=== PATIENT | male | born 1985 | race Caucasian/White ===

== ENCOUNTER 2020-03-12 21:23 | Emergency (ER) | payer BC ==
--- NOTE | 2020-03-12 21:42 | ER Document Report ---
ED Medical Screen (RME) - General Chief Complaint: Probable Seizure Stated Complaint: POSSIBLE SEIZURE/POSSIBLE HEAD INJURY Time Seen by Provider: 03/12/20 21:38 Mode of Arrival: Wheelchair Information source: Patient, Relative Notes: HPI; 34-year-old male was brought to emergency room by his after having a seizure earlier this evening at home around 8:20 PM. Patient states he was sitt ing up in bed in the next thing he knew he woke up on the floor. States his child was on the bed with him and stated that "he was shaking all over and then fell off the bed". He denies any head trauma head injury. No incontinence. Was confused when he first woke up. Patient admits to biting his tongue but no other injuries. states he had a similar seizure last September they came to the emergency room but left prior to being fully evaluated. No recent head trauma or head injuries. No other history of seizures. PE: Alert and oriented x3. Lungs: Clear to auscultation without rales, rhonchi, wheezes. Heart: Regular rate rhythm without murmurs, rubs, gallops. I have greeted and performed a rapid initial assessment of this patient. A comprehensive ED assessment and evaluation of the patient, analysis of test results and completion of the medical decision making process will be conducted by additional ED providers. I have specifically instructed the patient or family members with the patient to immediately return to any nursing staff should anything change in the patient's condition or with their chief complaint. TRAVEL OUTSIDE OF THE [place] IN LAST 30 DAYS: No Physical Exam - Vital signs Vitals: Temp Pulse Resp BP Pulse Ox 98.3 F 86 17 113/74 95 03/12/20 21:29 03/12/20 21:29 03/12/20 21:29 03/12/20 21:29 03/12/20 21: Course - Vital Signs Vital signs: Temp Pulse Resp BP Pulse Ox 98.3 F 86 17 113/74 95 03/12/20 21:29 03/12/20 21:29 03/12/20 21:29 03/12/20 21:29 03/12/20 21:
[2020-03-12 22:54] LABS: ABSOLUTE BASOPHILS # (AUTO) 0.1 10^3/uL (0.0-0.2); ABSOLUTE LYMPHOCYTES (AUTO) 1.2 10^3/uL (0.5-4.7); ABSOLUTE MONOCYTES (AUTO) 0.9 10^3/uL (0.1-1.4); ABSOLUTE NEUT (AUTO) 9.5 10^3/uL (1.7-8.2); BASOPHILS % (AUTO) 0.4 % (0-2); EOSINOPHILS % (AUTO) 0.4 % (0-6); HEMATOCRIT 46.6 % (37.9-51.0); HEMOGLOBIN 15.9 g/dL (13.5-17.0); LYMPHOCYTES % (AUTO) 10.4 % (13-45); MEAN CORPUSCULAR HEMOGLOBIN 30.2 pg (27.0-33.4); MEAN CORPUSCULAR HGB CONC 34.1 g/dL (32.0-36.0); MEAN CORPUSCULAR VOLUME 89 fl (80-97); PLATELET COUNT 284 10^3/uL (150-450); RED BLOOD COUNT 5.26 10^6/uL (4.35-5.55); RED CELL DISTRIBUTION WIDTH 13.9 % (11.5-14.0); SEGMENTED NEUTROPHILS % (AUTO) 80.8 % (42-78); TOTAL CELLS COUNTED % (AUTO) 100 %; WHITE BLOOD COUNT 11.7 10^3/uL (4.0-10.5)
--- NOTE | 2020-03-12 23:03 | RADIOLOGY REPORT (SQ) ---
EXAM: CT HEAD WITHOUT CLINICAL INDICATION: 34-year-old male with seizure. COMPARISON: None. TECHNIQUE: CT brain without contrast. This exam was performed according to our departmental dose optimization program which includes use of automated exposure control, adjustment of the mA and/or kV according to patient size and/or use of iterative reconstruction technique. FINDINGS: The ventricles, sulci, and cisterns are within normal limits. The nunes-white matter differentiation is preserved. There is no mass effect, midline shift, intra- or extra-axial fluid collection/acute hemorrhage. The osseous structures are unremarkable. The paranasal sinuses reveal polyp or retention cyst within the bilateral maxillary sinuses otherwise the remaining paranasal sinuses and mastoid air cells are clear. IMPRESSION: No acute intracranial abnormalities.
[2020-03-12 23:09] LABS: APPEARANCE,URINE CLOUDY; BILIRUBIN,URINE NEGATIVE (NEGATIVE); COLOR,URINE YELLOW; GLUCOSE, URINE NEGATIVE (NEGATIVE); KETONES,URINE TRACE mg/dL (NEGATIVE); LEUKOCYTE ESTERASE,URINE NEGATIVE (NEGATIVE); NITRITE,URINE NEGATIVE (NEGATIVE); PROTEIN,URINE 100 mg/dL (NEGATIVE); URINE SPECIFIC GRAVITY 1.024; UROBILINOGEN,URINE NEGATIVE mg/dL (<2.0)
[2020-03-12 23:11] LABS: BLOOD UREA NITROGEN 11 mg/dL (7-20); CALCIUM 9.7 mg/dL (8.4-10.2); CARBON DIOXIDE 27 mmol/L (22-30); CHLORIDE 104 mmol/L (98-107); GLUCOSE 109 mg/dL (75-110); POTASSIUM 4.3 mmol/L (3.6-5.0)
[2020-03-12 23:12] LABS: ALBUMIN 4.8 g/dL (3.5-5.0); ALKALINE PHOSPHATASE 84 U/L (38-126); ANION GAP 9 (5-19); ASPARTATE AMINO TRANSFERASE 42 U/L (17-59); BILIRUBIN,DIRECT 0.2 mg/dL (0.0-0.4); BILIRUBIN,TOTAL 0.8 mg/dL (0.2-1.3); TOTAL PROTEIN 7.8 g/dL (6.3-8.2)
[2020-03-12 23:19] LABS: URINE AMPHETAMINES SCREEN NEGATIVE; URINE BARBITURATES SCREEN NEGATIVE; URINE COCAINE SCREEN NEGATIVE; URINE METHADONE SCREEN NEGATIVE; URINE PHENCYCLIDINE SCREEN NEGATIVE
[2020-03-12 23:20] LABS: URINE BENZODIAZEPINES SCREEN UNCONFIRMED POSITIVE; URINE MARIJUANA (THC) SCREEN UNCONFIRMED POSITIVE
--- NOTE | 2020-03-13 00:53 | ER Document Report ---
ED General - General Chief Complaint: Probable Seizure Stated Complaint: POSSIBLE SEIZURE/POSSIBLE HEAD INJURY Time Seen by Provider: 03/12/20 21:38 Mode of Arrival: Wheelchair TRAVEL OUTSIDE OF THE [place] IN LAST 30 DAYS: No - HPI Notes: 34-year-old male presents following possible seizure at home. Patient's provides the information, she was not at home to witness this, this was witnessed by their 7-year-old son. Around 8 PM tonight, patient was sitting in bed with his son, apparently had fallen asleep then began having full body shaking and rolled off the bed. Unsure of duration, however the seizure-like activity had stopped by the time his got home. Patient states that he was oriented to her surroundings when he awoke. He says he did bite his tongue, den ies incontinence. Patient reports that he had a similar event in September which was witnessed by his , he was seen in the emergency department, however left after his triage assessment. Reviewed this note, mentions that patient had a seizure about 10 years previous to this, however patient is denying this currently. Patient reports he is under a lot of stress at work and just had a tooth pulled yesterday. Denies family history of seizure. Past Medical History - General Information source: Patient, Relative - Social History Smoking Status: Never Smoker Chew tobacco use (# tins/day): No Frequency of alcohol use: Occasional Drug Abuse: Marijuana Family History: Reviewed & Not Pertinent Patient has homicidal ideation: No Review of Systems - Review of Systems Constitutional: denies: Fever EENT: No symptoms reported Cardiovascular: denies: Chest pain Respiratory: denies: Short of breath Gastrointestinal: No symptoms reported Genitourinary: No symptoms reported Male Genitourinary: No symptoms reported Musculoskeletal: No symptoms reported Skin: Other - Abrasion Hematologic/Lymphatic: No symptoms reported Neurological/Psychological: Seizure. denies: Weakness, Headaches, Numbness Physical Exam - Vital signs Vitals: Temp Pulse Resp BP Pulse Ox 98.3 F 86 17 113/74 95 03/12/20 21:29 03/12/20 21:29 03/12/20 21:29 03/12/20 21:29 03/12/20 21:29 - General General appearance: Appears well, Alert In distress: None - HEENT Head: Normocephalic, Other - Abrasion to left superior orbit. No: Ecchymosis, Tenderness Extraocular movements intact: Yes Pupils: PERRL Mouth/Lips: Other - Do not appreciate obvious tongue injury Mucous membranes: Moist Neck: Supple - Respiratory Breath sounds: Normal - Cardiovascular Rhythm: Regular Heart sounds: Normal auscultation - Abdominal Tenderness: Nontender - Extremities General upper extremity: Normal ROM General lower extremity: Normal ROM - Neurological Neuro grossly intact: Yes Cognition: Normal Orientation: AAOx4 Speech: Normal Cranial nerves: Normal Cerebellar coordination: Normal Motor strength normal: LUE, RUE, LLE, RLE Additional motor exam normals: 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 Patient is amnestic to the event, however reports he was o riented upon waking up. Patient is currently afebrile and hemodynamically stable. Has no gross focal neuro deficits. Had a previous seizure in September 2019, questionable seizure 10 years ago as this was referencing another note the patient denying this. Patient had a evaluation done through the triage process. Lab work is grossly unremarkable, including no electrolyte abnormalities, his UDS however is positive for marijuana/opiates/benzodiazepines. Possibly the opiate/benzo are related to his recent dental procedure. Head CT was negative for acute abnormality. I discussed with him his work-up. Possible he might have seizure disorder versus stress-induced versus polypharmacy induced. I discussed with patient need to have follow-up with neurology for formal testing and a diagnosis. Patient states that he now has insurance and will be able to do this. I provided him with neurology practice information located here in [place]. Return precautions given, stable at time of discharge. - Vital Signs Vital signs: Temp Pulse Resp BP Pulse Ox 98.3 F 86 17 143/74 H 95 03/12/20 21:29 03/12/20 21:29 03/12/20 21:29 03/13/20 01:01 03/12/20 21:29 - Laboratory Results Result Diagrams: 03/12/20 22:43 03/12/20 22:43 Laboratory Results Interpreted: 03/12/20 03/12/20 22:43 22:43 WBC 11.7 H Lymph % (Auto) 10.4 L Absolute Neuts (auto) 9.5 H Seg Neutrophils % 80.8 H Urine Protein 100 H Urine Ketones TRACE H Urine Ascorbic Acid 40 H Critical Laboratory Results Reviewed: No Critical Results - Radiology Results Critical Radiology Results Reviewed: No Critical Results - EKG Interpretation by Me Additional EKG results interpreted by me: EKG is interpreted by me. Sinus rhythm, rate 72. Narrow QRS, QTC within normal limits. No ST segment elevation or depression. Discharge - Discharge Clinical Impression: Seizure Disposition: HOME, SELF-CARE Additional Instructions: Please follow-up with neurology. Here are some in her area listed below. Return to the emergency department for any concerning worsening symptoms. [facility] Address: [address], [place] [address] Dr. Facundo Edwards MD Address: [address] [place] [id number] [facility] Address: [facility] [address], [place] [address]
[2020-03-13 01:07] VITALS: BP 143/74
--- NOTE | 2020-03-13 09:26 | EKG REPORT ---
SEVERITY:- NORMAL ECG - SINUS RHYTHM : Confirmed by: Deric Mcmanus MD 13-Mar-2020 09:25:06
== END 2020-03-13 01:30 | disposition home or self-care (01) ==
LOC: ER 21:23
DX: R56.9 Unspecified convulsions (principal); S00.212A Abrasion of left eyelid and periocular area, initial encounter; W06.XXXA Fall from bed, initial encounter; Y93.84 Activity, sleeping; Y92.003 Bedroom of unspecified non-institutional (private) residence as the place of occurrence of the external cause; F12.10 Cannabis abuse, uncomplicated; K08.409 Partial loss of teeth, unspecified cause, unspecified class
CPT/HCPCS: 36415; 70450; 80053; 80307; 81001; 84484; 85025; 93005; 93010; 99285